=== PATIENT | male | born 1960 | race Two or more races ===

== ENCOUNTER 2016-09-06 20:48 | Emergency (ER) | payer OTHER ==
[~2016-09-06] VITALS: Ht 165.1 cm; Wt 93.0 kg
[2016-09-06 23:26] LABS: Basophils # (auto) 0 uL; Basophils % (auto) 0.3 % (0.0-2.0); Eosinophils # (auto) 0.1 uL; Eosinophils % (auto) 2.2 % (0.0-7.0); Hematocrit 45.5 % (41.0-53.0); Hemoglobin 14.7 g/dL (13.5-17.5); Lymphocytes # (auto) 1.1 uL; Lymphocytes % (auto) 24.2 % (10.0-50.0); Mean Corpuscular Hemoglobin 29.8 pg (28.0-32.0); Mean Corpuscular Hgb Conc. 32.4 g/dL (32.0-36.0); Mean Corpuscular Volume 92.1 fL (80.0-100.0); Mean Platelet Volume 9.6 fL (7.4-10.4); Monocytes # (auto) 0.4 uL; Monocytes % (auto) 9.4 % (0.0-12.0); Neutrophils # (auto) 2.9 uL; Neutrophils % (auto) 63.9 % (37.0-80.0); Platelet Count (auto) 180 10^3/uL (140-450); Red Cell Distribution Width 11.9 % (11.6-16.0); White Blood Cell 4.5 10^3/uL (4.4-10.8)
[2016-09-06 23:44] LABS: Albumin 3.4 g/dL (3.4-5.0); Alkaline Phosphatase 116 U/L (45-117); Anion Gap 10 (5-15); Aspartate Aminotransferase 21 U/L (15-37); BUN/Creatinine Ratio 18.2; Bilirubin, Total 0.5 mg/dL (0.2-1.0); Blood Urea Nitrogen 16 mg/dL (7-18); Carbon Dioxide 25 mmol/L (21-32); Chloride 104 mmol/L (98-107); GFR African American 116 mL/min; GFR Non-African American 96 mL/min; Glucose 345 mg/dL (74-106); Potassium 4.1 mmol/L (3.5-5.1); Sodium 139 mmol/L (136-145); Total Protein 7.3 g/dL (6.4-8.2)
[2016-09-07] MEDS ORDERED: LORazepam 2MG/ML-1ML VIAL IV ONE (00:30)
[2016-09-07 01:21] LABS: Urine RBC None Seen /hpf (0 - 3)
[2016-09-07 01:33] LABS: Urine Bilirubin Negative (Negative); Urine Blood Negative /uL (Negative); Urine Color Yellow (Yellow); Urine Ketone Negative (Negative); Urine Nitrite Negative (Negative); Urine Urobilinogen Normal (Negative); Urine pH 5.5 (5.0-8.0)
[2016-09-07 01:40] LABS: Urine Glucose 4+ mg/dL (Normal)
[2016-09-07 02:00] VITALS: BP 123/60
== END 2016-09-07 02:01 | disposition home or self-care (01) ==
LOC: ER 20:51
DX: I10 Essential (primary) hypertension (principal); E11.65 Type 2 diabetes mellitus with hyperglycemia
CPT/HCPCS: 36415; 71010; 80053; 80320; 81001; 85025; 93005; 96374; 99285; G0434; J2060; J7030